=== PATIENT | female | born 1980 | race African-American/Black ===

== ENCOUNTER 2018-07-09 11:59 | Emergency (ER) | payer OTHER ==
[2018-07-09 12:47] VITALS: TEMP 98; BMI 21.2
--- NOTE | 2018-07-09 13:37 | PDOC ---
History of Present Illness - General Chief Complaint: Labor Assessment Stated Complaint: RT. SIDE ABD. PAIN History Source: Patient Exam Limitations: No Limitations - History of Present Illness Initial Comments: 07/09/18 13:43 38 yo F with no medical history (2X abortions and 1x miscarriages) ( vaginal delivery, no complications) presents to the emergency department from her OBGYN office for nausea, vomiting, abdominal pain, and vaginal spotting. Per the patient, she began having vaginal spotting yesterday after urination. Described as droplets and bright red without vaginal discharge. In addition, she has had generalized abdominal pain with worse point in midline lower abdomen for 4 days with associative N/V NBNB 4x+ per day. She describes the pain as cramping, sudden onset, constant, 10/10, with radiation to the LLQ and RLQ without lower back involvement. No home medications used for pain relief. Denies the following: fever, chills, sob, chest pain, visual changes, headaches , leg pain/swelling, diarrhea, and hematochezia. Allergies: NKDA Surgery: None Past History - Past Medical History Allergies/Adverse Reactions: Allergies Allergy/AdvReac Type Severity Reaction Status Date / Time No Known Allergies Allergy Verified 09/25/14 11:55 Home Medications: Ambulatory Orders Cephalexin Monohydrate [Keflex -] 500 mg PO Q8H 10 Days #30 capsule 07/09/18 Metoclopramide HCl [Reglan -] 10 mg PO BID PRN #8 tablet 07/09/18 Asthma: No Cancer: No Cardiac Disorders: No Diabetes: No HTN: No Seizures: No Thyroid Disease: No - Suicide/Smoking/Psychosocial Hx Smoking Status: No Smoking History: Unknown if ever smoked Have you smoked in the past 12 months: No Number of Cigarettes Smoked Daily: 0 Information on smoking cessation initiated: No Hx Alcohol Use: No Drug/Substance Use Hx: No Substance Use Type: None Hx Substance Use Treatment: No Review of Systems - Review of Systems Able to Perform ROS?: Yes Is the patient limited Indian proficient: No Constitutional: No: Chills, Diaphoresis, Fever, Weakness HEENTM: No: Eye Pain, Recent change in vision, Ear Pain, Nose Pain, Throat Pain , Mouth Pain Respiratory: No: Cough, Shortness of Breath, Hemoptysis Cardiac (ROS): No: Chest Pain, Lightheadedness, Palpitations, Syncope ABD/GI: Yes: Nausea, Poor Fluid Intake, Vomiting, Abdominal cramping. No: Constipated, Diarrhea, Poor Appetite, Rectal Bleeding, Tarry Stools : No: Burning, Dysuria, Hematuria, Incontinence Musculoskeletal: Yes: Back Pain. No: Joint Pain, Neck Pain Integumentary: No: Bruising, Erythema, Rash Neurological: No: Headache, Numbness, Tingling, Tremors Psychiatric: No: Change in Appetite Endocrine: No: Unexplained Weight Gain *Physical Exam - Vital Signs Last Vital Signs Temp Pulse Resp BP Pulse Ox 98 F 89 20 110/68 100 07/09/18 12:45 07/09/18 12:45 07/09/18 12:45 07/09/18 12:45 07/09/18 12:45 - Physical Exam General Appearance: Yes: Nourished, Appropriately Dressed. No: Apparent Distress HEENT: positive: EOMI, URSULA, Normal Voice, Symmetrical, Pharynx Normal, Other ( dry mucous membranes). negative: Pale Conjunctivae, Scleral Icterus (R), Scleral Icterus (L), Muffled/Hoarse voice, Pharyngeal Erythema, Tonsillar Exudate, Tonsillar Erythema Neck: positive: Trachea midline, Supple. negative: Tender, Lymphadenopathy (R) , Lymphadenopathy (L) Respiratory/Chest: positive: Lungs Clear, Normal Breath Sounds. negative: Chest Tender, Respiratory Distress, Accessory Muscle Use, Rales, Rhonchi, Stridor, Wheezing Cardiovascular: positive: Regular Rhythm, Regular Rate, S1, S2. negative: Systolic Murmur Female Pelvic Exam: positive: normal external exam, cervical os closed, normal adnexa, other (scant blood in the vaginal vault]). negative: CMT, adnexal tenderness Gastrointestinal/Abdominal: positive: Normal Bowel Sounds, Tender (lower abdominal midline), Flat, Soft. negative: Distended, Guarding, Rebound, Tenderness Lymphatic: negative: Adenopathy Musculoskeletal: positive: Normal Inspection. negative: CVA Tenderness Extremity: positive: Normal Capillary Refill, Normal Inspection, Normal Range of Motion. 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 negative: Facial Droop, Numbness, Sensory Deficit ED Treatment Course - LABORATORY CBC & Chemistry Diagram: 07/09/18 13:51 07/09/18 13:51 Medical Decision Making - Medical Decision Making 38 yo F with no medical history (vaginal delivery, no complications) presents to the emergency department from her OBGYN office for nausea, vomiting , abdominal pain, and vaginal spotting. Initial vitals: Initial Vital Signs Temp Pulse Resp BP Pulse Ox 98 F 89 20 110/68 100 07/09/18 12:45 07/09/18 12:45 07/09/18 12:45 07/09/18 12:45 07/09/18 12:45 Work up: Single IUP confirmed POCUS with FHR 122 with estimated GA 6 weeks 2 days. No ectopic seen. No free fluid. ddx: rule out ectopic vs threatened vs inevitable vs incomplete vs infectious etiology (GC) Laboratory Tests 07/09/18 07/09/18 07/09/18 13:51 13:51 13:51 WBC 6.4 RBC 4.58 Hgb 12.6 Hct 36.9 MCV 80.6 MCH 27.5 MCHC 34.1 RDW 15.4 D Plt Count 262 D MPV 7.6 Absolute Neuts (auto) 4.5 Neutrophils % 70.1 Lymphocytes % 18.1 D Monocytes % 11.0 H Eosinophils % 0.0 Basophils % 0.8 Nucleated RBC % 0 Sodium 137 Potassium 3.8 Chloride 103 Carbon Dioxide 22 Anion Gap 12 BUN 10 Creatinine 0.8 Creat Clearance w eGFR 81.16 Random Glucose 76 Calcium 9.6 Phosphorus 3.2 Magnesium 2.2 Total Bilirubin 0.5 AST 15 ALT 14 Alkaline Phosphatase 59 Total Protein 8.4 H Albumin 4.2 Beta HCG, Quant 29971.9 Urine Color Urine Appearance Urine pH Ur Specific [place] Urine Protein Urine Glucose (UA) Urine Ketones Urine Blood Urine Nitrite Urine Bilirubin Urine Urobilinogen Ur Leukocyte Esterase Urine WBC (Auto) Urine RBC (Auto) Urine Casts (Auto) U Epithel Cells (Auto) Urine Bacteria (Auto) Blood Type O POSITIVE Antibody Screen Negative 07/09/18 15:01 WBC RBC Hgb Hct MCV MCH MCHC RDW Plt Count MPV Absolute Neuts (auto) Neutrophils % Lymphocytes % Monocytes % Eosinophils % Basophils % Nucleated RBC % Sodium Potassium Chloride Carbon Dioxide Anion Gap BUN Creatinine Creat Clearance w eGFR Random Glucose Calcium Phosphorus Magnesium Total Bilirubin AST ALT Alkaline Phosphatase Total Protein Albumin Beta HCG, Quant Urine Color Yellow Urine Appearance Clear Urine pH 6.0 Ur Specific [place] 1.019 Urine Protein Negative Urine Glucose (UA) Negative Urine Ketones 4+ H Urine Blood 1+ H Urine Nitrite Positive H Urine Bilirubin Negative Urine Urobilinogen 1.0 Ur Leukocyte Esterase Trace Urine WBC (Auto) 3 Urine RBC (Auto) 2 Urine Casts (Auto) 3 U Epithel Cells (Auto) 3.9 Urine Bacteria (Auto) 4741.6 Blood Type Antibody Screen labs show UTI in UA. no leukocytosis and no antibodies. patients bhcg appropriate for gestational age. patient has significant improvement in symptoms after IVF, reglan, and tylenol. patient was given strict return precautions and prescribed abx for outpatient use. told to follow up with OBGYN in 1 week for follow up care. Dispo: Discharge *DC/Admit/Observation/Transfer Diagnosis at time of Disposition: Threatened UTI (urinary tract infection) Qualifiers: Urinary tract infection type: site unspecified Hematuria presence: without hematuria Qualified Code(s): N39.0 - Urinary tract infection, site not specified - Discharge Dispostion Disposition: HOME Decision to Admit order: No - Prescriptions Prescriptions: Cephalexin Monohydrate [Keflex -] 500 mg PO Q8H 10 Days #30 capsule Metoclopramide HCl [Reglan -] 10 mg PO BID PRN #8 tablet PRN Reason: Nausea And/Or Vomiting - Referrals Referrals: Linda Solorzano MD [Staff Physician] - [facility] [place] [facility] [Provider Group] - Patient Instructions Printed Discharge Instructions: DI for Threatened , DI for Urinary Tract Infection (UTI) Additional Instructions: you were seen in the emergency department for your abdominal pain and nausea and vomiting. your urine shows that you have an urinary tract infection. please take the antibiotics as prescribed. in addition, your ultrasound shows your with a heart rate intact. please heed the following precautions : there may be more bleeding. in addition, please return to the emergency department if you have worsening bleeding with associative weakness, lightheadedness, and dizziness. please follow up with your OBGYN physician or the one referred to you in 1 week after discharge. for the UTI, you need to take the antibiotics as prescribed. if you have fever, chills, worsening nausea and vomiting, and flank pain, please return to the emergency department immediately. thank you. - Post Discharge Activity Forms/Work/School Notes: Back to Work
[2018-07-09] MEDS ORDERED: PYRIDOXINE HCL (B-6) 50 MG TABLET (FP) PO ONE (13:41)
[2018-07-09] MEDS ORDERED: ACETAMINOPHEN 1000 MG/100 ML VIAL (NON FORMULARY) IVPB ONE (13:41)
[2018-07-09] MEDS ORDERED: SODIUM CHLORIDE 1,000 ML IV STA (13:41)
[2018-07-09] MEDS ORDERED: ACETAMINOPHEN INJECTION 100 ML IVPB ONE (13:47)
[2018-07-09] MEDS ORDERED: THIAMINE HCL 100 MG TABLET (FP) ONE (13:47)
[2018-07-09] MEDS ORDERED: METOCLOPRAMIDE HCL INJECTION 10 MG/2 ML VIAL ONE (13:55)
[2018-07-09] MEDS ORDERED: METOCLOPRAMIDE HCL INJECTION 10 MG/2 ML VIAL IVPUSH ONE (13:59)
[2018-07-09 14:10] LABS: BASO % 0.8 % (0-2.0); HEMATOCRIT 36.9 % (32.4-45.2); HEMOGLOBIN 12.6 GM/dL (10.7-15.3); LYMPH % 18.1 % (8-40); MCH 27.5 pg (25.7-33.7); MCHC 34.1 g/dl (32.0-36.0); MEAN CELL VOLUME 80.6 fl (80-96); MEAN PLT VOLUME 7.6 fl (7.5-11.1); NEUT % 70.1 % (42.8-82.8); PLATELET COUNT 262 K/MM3 (134-434); RBC 4.58 M/mm3 (3.60-5.2); RDW 15.4 % (11.6-15.6); WHITE BLOOD COUNT 6.4 K/mm3 (4.0-10.0)
--- NOTE | 2018-07-09 14:29 | PDOC ---
Attending Attestation - Resident Resident Name: CarterKrishan - ED Attending Attestation I have performed the following: I have examined & evaluated the patient, The case was reviewed & discussed with the resident, I agree w/resident's findings & plan - HPI HPI: 07/09/18 14:23 38-year-old female with no medical history presenting with abdominal pain and vaginal spotting times one day. Associated with nausea and vomiting times x5 days, inability to tolerate oral intake. - Physicial Exam PE: 07/09/18 14:25 Agree with the resident's HPI and PE as documented in the electronic medical record. NAD, well appearing, PERRL, EOMI, MMM, nl conjunctiva, anicteric; neck supple. lungs clear, RRR, abdomen soft nontender. no CVAT/flank tenderness. BELL x4, no focal neuro deficits. No peripheral edema. normal color for ethnicity, WWP. pelvic exam by resident, see note - Medical Decision Making 07/09/18 14:25 hpi as documented VS reviewed wnl. DDx female VB: ectopic , miscarriage, demise, subchorionic hematoma, retained POC, normal first trimester bleeding, UTI in in . Fibroid uterus, vaginitis, infection, electrolyte/metabolic derangements, anemia. Rh positive, no rhogam indicated VS wnl, abdomen benign, no VB here, controlled pelvic exam by resident, unremarkable. Beta hcg >45,000 Bedside pelvic US performed for female with VB and /or abdominal pain, evaluation. views obtained: pelvis transverse and sagittal , findings include live IUP visualized dated at, FHR 123 bpm. CRL dating at 6w 2d. no pelvic FF. ?small subchorionic hematoma, pelvic vasculature in uterus posteriorly noted. Impression: live IUP. ED course: IVF and antiemetic, reglan, tylenol. labs and lytes normal. UA positive with nitrites and bacteria, in setting of , will treat with 10 day course of Keflex pyelo/infection precautions given. Dispo: OB followup, bleeding precautions for threatened . pelvic rest advised. tylenol PRN pain control, reglan for n/v of , hydration and intake important, vitamins. strict return precautions. In evaluating this patient's complaint, multiple diagnoses were considered, including those listed above. Based on history, physical, clinical context, and any tests done today it is my judgment that the diagnosis/diagnoses considered do not apply to this patient and that the remaining diagnoses about either do not apply to this patient, or do not require additional emergent evaluation and treatment 07/09/18 15:56 Procedures - Bedside Ultrasound Other: pelvic/ Remarks: 07/09/18 14:28 Bedside pelvic US performed for female with VB and /or abdominal pain, evaluation. views obtained: pelvis transverse and sagittal , findings include live IUP visualized dated at, FHR 123 bpm. CRL dating at 6w 2d. no pelvic FF. ?small subchorionic hematoma, pelvic vasculature in uterus posteriorly noted. Impression: live IUP.
[2018-07-09 14:39] LABS: ALBUMIN 4.2 g/dl (3.4-5.0); ALK PHOS 59 U/L (45-117); ANION GAP 12 MMOL/L (8-16); BILIRUBIN,TOTAL 0.5 mg/dL (0.2-1); BLOOD UREA NITROGEN 10 mg/dL (7-18); CALCIUM 9.6 mg/dL (8.5-10.1); CHLORIDE 103 mmol/L (98-107); CO2 22 mmol/L (21-32); CREATININE 0.8 mg/dL (0.55-1.3); GLUCOSE,RANDOM 76 mg/dL (74-106); MAGNESIUM 2.2 mg/dL (1.8-2.4); PHOSPHOROUS 3.2 mg/dL (2.5-4.9); POTASSIUM 3.8 mmol/L (3.5-5.1); SGOT/AST 15 U/L (15-37); SGPT/ALT 14 U/L (13-61); SODIUM 137 mmol/L (136-145); TOT PROT 8.4 g/dl (6.4-8.2)
[2018-07-09 15:17] LABS: EPI CELLS 3.9 /HPF (0-5/HPF); URINE APPEARANCE CLEAR; URINE BACTERIA 4741.6 /hpf (NEGATIVE); URINE BILIRUBIN NEGATIVE (NEGATIVE); URINE CASTS 3 /lpf (0-8); URINE COLOR YELLOW; URINE GLUCOSE (UA) NEGATIVE (NEGATIVE); URINE KETONE 4+ (NEGATIVE); URINE LEUK ESTERASE TRACE (NEGATIVE); URINE NITRITE POSITIVE (NEGATIVE); URINE PROTEIN NEGATIVE (NEGATIVE); URINE RBC 2 /hpf (0-4); URINE WBC 3 /hpf (0-5)
[2018-07-09] MEDS ORDERED: CEPHALEXIN MONOHYDRATE 500 MG CAPSULE (UD) PO ONE (15:36)
[2018-07-09] MEDS ORDERED: CEPHALEXIN MONOHYDRATE 500 MG CAPSULE (UD) ONE (15:51)
[2018-07-09 16:48] VITALS: BP 118/90; PULSE 96
== END 2018-07-09 16:48 | disposition home or self-care (01) ==
LOC: JER 11:59
PROC: BY49ZZZ Ultrasonography of First Trimester, Single Fetus (ICD-10-PCS; principal; 2018-07-09)
DX: O26.891 Other specified pregnancy related conditions, first trimester (principal); O20.0 Threatened abortion; O23.31 Infections of other parts of urinary tract in pregnancy, first trimester; B96.89 Other specified bacterial agents as the cause of diseases classified elsewhere; Z3A.01 Less than 8 weeks gestation of pregnancy
CPT/HCPCS: 36415; 80053; 81003; 83735; 84100; 84702; 85025; 86850; 86900; 86901; 87086; 87186; 87491; 87591; 87661; 99284-25; J0131; J7030

== ENCOUNTER 2019-02-24 21:30 | Inpatient (IN) | payer OTHER ==
--- NOTE | 2019-02-24 23:04 | HP ---
Past Medical History - Admission History of Present Illness: 39 yo @ 39 1/7 wks by first trimester ultrasound, EDC 03/02/2019 complicated by: 1. Sickle cell carrier - FOB negative 2010 2. 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 AMA - Reassuring testing, [id number] Most recent ultrasound 02/06/2019 6lb 12oz 3074 grams (61%ile) 4. Mild anemia - asymptomatic Not taking ferrous sulfate Patient reports chief complaint of contractions that started at 2000 She reports movement, denies leakage of fluid or vaginal bleeding. History Source: Patient Limitations to Obtaining History: No Limitations - Past Medical History Cardiovascular: No: HTN Pulmonary: No: Asthma ...: 6 ...Para: 2 ...Term: 2 ...Spon : 1 ...Induced : 2 Heme/Onc: Yes: Sickle Cell Trait. No: Anemia - Past Surgical History Hx Myomectomy: No Hx Transabdominal Cerclage: No Additional Surgical History: Chest tube, s/p spontaneous pneumothorax - Smoking History Smoking history: Unknown if ever smoked Have you smoked in the past 12 months: No Aproximately how many cigarettes per day: 0 - Alcohol/Substance Use Hx Alcohol Use: No - Social History Usual Living Arrangement: Yes: With Spouse History of Recent Travel: No Home Medications - Allergies Allergies/Adverse Reactions: Allergies Allergy/AdvReac Type Severity Reaction Status Date / Time No Known Allergies Allergy Verified 09/25/14 11:55 Family Medical History Family History: Denies Review of Systems - Review of Systems Constitutional: reports: No Symptoms Cardiovascular: reports: No Symptoms Respiratory: reports: No Symptoms Gastrointestinal: reports: No Symptoms Genitourinary: reports: No Symptoms Musculoskeletal: reports: No Symptoms Neurological: reports: No Symptoms Endocrine: reports: No Symptoms Psychiatric: reports: No Symptoms Physical Exam - Maternity Constitutional: Yes: Well Nourished, No Distress, Calm Cardiovascular: Yes: Regular Rate and Rhythm Lungs: Clear to auscultation - Abdominal Exam/OB Number of Fetuses: Single Presentation: Vertex Contractions: Yes Regularity: Regular Category: I Accelerations: Non-Uniform Decelerations: None - Vaginal Exam/OB Vaginal Bleediing: No Dilatation (cm): 3 Effacement (%): 80 Amniotic Membrane Status: Intact Station: -3 - Physical Exam Edema: No Psychiatric: Yes: Alert, Oriented - Labs Lab Results: PNL: O positive, antibody negative, RPR NR, HIV neg, HCV neg; HBs Ag neg; Hg Nadia SC trait (as above); Rubella Immune; Varicella Immune; GCT 50; GBS negative Hemorrhage Risk Assessment - Risk Factors Medium Risk Factors: Yes: None High Risk Factors: Yes: None Risk Score: 1 Risk Level: Medium Risk Assessment/Plan 39 yo @ 39 1/7 wks active labor 1. Admit to L&D 2. Consents reviewed and signed 3. Routine labs collected and sent 4. GBS negative 5. Category I FHT 6. Will offer pain medication upon patient request 7. Will proceed with expectant management
[2019-02-25 00:02] LABS: BASO % 0.2 % (0-2.0); EOS % 0.5 % (0-4.5); HEMATOCRIT 31.1 % (32.4-45.2); HEMOGLOBIN 10.2 GM/dL (10.7-15.3); LYMPH % 21.2 % (8-40); MCHC 32.8 g/dl (32.0-36.0); MEAN CELL VOLUME 82.4 fl (80-96); MEAN PLT VOLUME 7.7 fl (7.5-11.1); MONO % 13.3 % (3.8-10.2); NEUT % 64.8 % (42.8-82.8); PLATELET COUNT 238 K/MM3 (134-434); RBC 3.77 M/mm3 (3.60-5.2); RDW 16.8 % (11.6-15.6); WHITE BLOOD COUNT 7.5 K/mm3 (4.0-10.0)
[2019-02-25 00:28] LABS: BLOOD UREA NITROGEN 3.2 mg/dL (7-18); CALCIUM 8.7 mg/dL (8.5-10.1); CREATININE 0.6 mg/dL (0.55-1.3); POTASSIUM 3.9 mmol/L (3.5-5.1)
[2019-02-25] MEDS ORDERED: NALOXONE HCL 0.4 MG/ML VIAL IVPUSH PRN (00:50)
[2019-02-25] MEDS ORDERED: FENTANYL/BUPIVACAINE/NS/PF - PCEA - 50 ML DISP.SYRIN EP ONE (00:51)
[2019-02-25] MEDS ORDERED: LIDO 2%/EPI 1:200000 PRESRVFRE (20 ML SDVIAL) ONE (00:56)
[2019-02-25] MEDS ORDERED: FENTANYL/BUPIVACAINE/NS/PF - PCEA - 50 ML DISP.SYRIN EP SCH (01:00)
--- NOTE | 2019-02-25 01:35 | PN ---
Ante-Partal Exam - Subjective Subjective: Patient comfortable s/p epidural Bleeding: No Headache: No Visual changes: No Right upper quadrant pain: No - Contractions Contractions: Yes Regularity: Regular Monitor Mode: External - Exam during Labor Heart Rate: 130 Variability: Moderate Category: I Monitor Accelerations: Present Monitor Decelerations: None Exam: Vaginal Dilatation (cm): 6 Effacement (%): 80 Amniotic Membrane Status: Ruptured (clear) Amniotic Fluid: Clear Station: -3 - Intrapartum Hemorrhage Risk Medium Risk Factors: None High Risk Factors: None Risk Score: 0 Risk Level: Low Risk - Assessment/Plan Assessment/Plan: 39 yo active labor 1. AROM performed, clear fluid 2. GBS neg 3. Pain well controlled with epidural 4. will proceed with expectant management
[2019-02-25] MEDS ORDERED: OXYTOCIN 20 UNITS in 0.9% NS 20 UNIT/1,000 ML INFUS.BAG IV ONE ×2 (03:00→05:23)
[2019-02-25] MEDS ORDERED: METHYLERGONOVINE MALEATE 0.2 MG/1 ML AMP IM PRN (03:22)
[2019-02-25] MEDS ORDERED: WITCH HAZEL 50% (TUCKS) 40 PAD/JAR PAD TP PRN (03:22)
[2019-02-25] MEDS ORDERED: BENZOCAINE 20% 57 GM BOTTLE TP PRN (03:22)
[2019-02-25] MEDS ORDERED: BENZOCAINE 28 GM HEMORRHOIDAL OINTMENT TP PRN (03:22)
[2019-02-25] MEDS ORDERED: BISACODYL 10 MG SUPP.RECT RC PRN (03:22)
--- NOTE | 2019-02-25 03:23 | PN ---
Delivery - Delivery Vaginal Delivery: No Problems Type of Anesthesia: Epidural Episiotomy/Laceration: None EBL (cc): 100 Delivery, Single - Stages of Labor Date 1st Stage Initiatied: 02/24/19 Time 1st Stage Initiated: 20:00 Date 2nd Stage Initiated: 02/25/19 Time 2nd Stage Initiated: 02:55 Date of Delivery: 02/25/19 Time of Delivery: 03:12 Date Placenta Delivered: 02/25/19 Time Placenta Delivered: 03:15 Placenta: Yes: Spontaneous - Condition of Infant Gender: Male Position: Left, OA Total Hours ROM (Hrs/Mins): 1 hour 45 minutes - 1 Minute Total Score: 9 5 Minutes Total Score: 9 Remarks - Remarks Remarks: Patient progressed to fully dilated and at 0312 via delivered a viable male in ESAU position, APGARs 9,9. Weight and length unknown at this time. Head delivered spontaneously followed by shoulders and body without difficulty. Infant with spontaneous cry and placed on mother's abdomen. Nose and mouth was bulb suctioned. Cord was clamped and cut. Perineum and vagina examined, No lacerations noted Placenta was delivered spontaneously and intact. 20 units of pitocin in 1 L IVF was given. All counts correct x 2. Mother and infant stable in LDR. EBL 100cc.
[2019-02-25] MEDS ORDERED: OXYTOCIN 20 UNITS in 0.9% NS 20 UNIT/1,000 ML INFUS.BAG IV SCH (03:30)
[2019-02-25] MEDS ORDERED: ELECTROLYTE-148 SOLN 1,000 ML IV SCH (04:45)
[2019-02-25 04:52] LABS: INR 0.84 (0.83-1.09); PROTHROMBIN TIME (PATIENT) 9.9 SEC (9.7-13.0)
[2019-02-25 04:55] LABS: ACTIVATED PTT 25.4 SECONDS (25.2-36.5)
[2019-02-25 05:09] VITALS: BMI 24.3
[2019-02-25] MEDS ORDERED: ACETAMINOPHEN 325 MG TABLET (FP) ONE (07:27)
[2019-02-25] MEDS ORDERED: IBUPROFEN 600 MG TABLET (FP) PO ONE (07:27)
[2019-02-25] MEDS: IBUPROFEN 600 MG TABLET (FP) PO PRN ×2 (07:34→14:51)
[2019-02-25] MEDS: ACETAMINOPHEN 325 MG TABLET (FP) PO PRN ×2 (07:37→14:51)
[2019-02-25] MEDS: PRENATAL VITAMINS W/ FOLIC ACID TABLET (FP) PO SCH (09:30)
[2019-02-26] MEDS: ACETAMINOPHEN 325 MG TABLET (FP) PO PRN ×4 (02:14→22:33)
[2019-02-26] MEDS: IBUPROFEN 600 MG TABLET (FP) PO PRN ×4 (02:14→22:34)
[2019-02-26 08:22] LABS: BASO % 0.4 % (0-2.0); EOS % 0.7 % (0-4.5); HEMATOCRIT 28.3 % (32.4-45.2); HEMOGLOBIN 9.4 GM/dL (10.7-15.3); MCH 27.1 pg (25.7-33.7); MCHC 33.2 g/dl (32.0-36.0); MEAN CELL VOLUME 81.8 fl (80-96); MEAN PLT VOLUME 7.7 fl (7.5-11.1); MONO % 10.9 % (3.8-10.2); PLATELET COUNT 222 K/MM3 (134-434); RBC 3.45 M/mm3 (3.60-5.2); RDW 16.8 % (11.6-15.6); WHITE BLOOD COUNT 8.5 K/mm3 (4.0-10.0)
--- NOTE | 2019-02-26 08:26 | PN ---
Post Progress Note - Subjective Subjective: Patient without acute complaints. Reports tolerating oral intake without nausea or vomiting. Ambulating without dizziness. Denies fevers or chills. Pain well controlled with oral pain medication. without difficulty. Passing flatus. Post Day: 1 Type of Delivery: Vital Signs: Vital Signs Temperature 97.9 F 02/26/19 05:56 Pulse Rate 69 02/26/19 05:56 Respiratory Rate 20 02/26/19 05:56 Blood Pressure 106/68 02/26/19 05:56 O2 Sat by Pulse Oximetry (%) 100 02/25/19 03:00 Breast Exam: Yes: Soft Uterus: Yes: Fundus Firm, Fundus @ umbilicus Abdomen/GI: Yes: Abdomen soft Lochia: Yes: Rubra Lochia, amount: Small Extremities: Yes: Calves non-tender Perineum: Yes: Intact Activity: Ambulating - Labs Labs: CBC WBC 7.5 K/mm3 (4.0-10.0) 02/24/19 11:45 RBC 3.77 M/mm3 (3.60-5.2) 02/24/19 11:45 Hgb 10.2 GM/dL (10.7-15.3) L 02/24/19 11:45 Hct 31.1 % (32.4-45.2) L D 02/24/19 11:45 MCV 82.4 fl (80-96) 02/24/19 11:45 MCH 27.0 pg (25.7-33.7) 02/24/19 11:45 MCHC 32.8 g/dl (32.0-36.0) 02/24/19 11:45 RDW 16.8 % (11.6-15.6) H 02/24/19 11:45 Plt Count 238 K/MM3 (134-434) 02/24/19 11:45 MPV 7.7 fl (7.5-11.1) 02/24/19 11:45 Absolute Neuts (auto) 4.8 K/mm3 (1.5-8.0) 02/24/19 11:45 Neutrophils % 64.8 % (42.8-82.8) 02/24/19 11:45 Lymphocytes % 21.2 % (8-40) 02/24/19 11:45 Monocytes % 13.3 % (3.8-10.2) H 02/24/19 11:45 Eosinophils % 0.5 % (0-4.5) D 02/24/19 11:45 Basophils % 0.2 % (0-2.0) 02/24/19 11:45 Nucleated RBC % 0 % (0-0) 02/24/19 11:45 Assessment/Plan 39yo s/p doing well, Breast feeding VSS, Afebrile, appropriate h/h drop, Stable Rh pos Baby boy circumcised Plan d/c on 02/27/19
[2019-02-26] MEDS: PRENATAL VITAMINS W/ FOLIC ACID TABLET (FP) PO SCH (10:53)
[2019-02-26] MEDS ORDERED: SENNOSIDES/DOCUSATE COMBO (SENNA PLUS) TABLET (UD) PO PRN (22:00)
[2019-02-26] MEDS: FENTANYL/BUPIVACAINE/NS/PF - PCEA - 50 ML DISP.SYRIN EP SCH (22:02)
--- NOTE | 2019-02-27 08:17 | DS ---
Physical Exam-COMB TENDER Vital Signs: Vital Signs Temperature 98.1 F 02/26/19 22:00 Pulse Rate 80 02/26/19 22:00 Respiratory Rate 18 02/26/19 22:00 Blood Pressure 113/67 02/26/19 22:00 O2 Sat by Pulse Oximetry (%) 100 02/25/19 03:00 Constitutional: Yes: Well Nourished, No Distress, Calm Eyes: Yes: WNL, Conjunctiva Clear, EOM Intact HENT: Yes: WNL, Atraumatic, Normocephalic Neck: Yes: WNL, Supple, Trachea Midline Cardiovascular: Yes: WNL, Regular Rate and Rhythm Respiratory: Yes: WNL, Regular, CTA Bilaterally Gastrointestinal: Yes: WNL, Normal Bowel Sounds, Soft ...Rectal Exam: Yes: Deferred Renal/: Yes: WNL External Genitalia: Yes: Normal Internal Exam Deferred: Yes ....Post : Yes: Uterus firm, Uterus non-tender, Slight lochia rubra Breast(s): Yes: WNL Musculoskeletal: Yes: WNL Extremities: Yes: WNL Edema: No Integumentary: Yes: WNL Neurological: Yes: WNL, Alert, Oriented ...Motor Strength: WNL Psychiatric: Yes: WNL, Alert, Oriented Labs: CBC, BMP 02/26/19 07:33 02/24/19 11:45 Delivery - Delivery Vaginal Delivery: No Problems, Spontaneous Type of Anesthesia: Epidural Episiotomy/Laceration: None EBL (cc): 100 Delivery, Single - Stages of Labor Date 1st Stage Initiatied: 02/24/19 Time 1st Stage Initiated: 20:00 Date 2nd Stage Initiated: 02/25/19 Time 2nd Stage Initiated: 02:55 Date of Delivery: 02/25/19 Time of Delivery: 03:12 Time Placenta Delivered: 03:15 Placenta: Yes: Spontaneous - Condition of Dental Internship/Tie Tamper Present: No Gender: Male Weight: 3.203 kg Position: Left, OA Total Hours ROM (Hrs/Mins): 1 hour 45 minutes - 1 Minute Total Score: 9 5 Minutes Total Score: 9 - Feeding Plan Initial Plan: Elected not to breastfeed exclusively throughout hospitalization Discharge Summary Problems reviewed: Yes Reason For Visit: LABOR Spont labor at term Procedures: Principal: Hospital Course: Normal recovery Condition: Good - Instructions Diet, Activity, Other Instructions: Physical activity Resume your normal everyday activity as tolerated no heavy lifting or exercise until seen by your surgeon. You may walk unlimited zenaida of and climb stairs. You may resume driving the car when you feel safe and comfortable behind the wheel. No sexual activity as instructed. Wound care If you have a bandage, leave it on, and keep dry for 48-72 hours. After that time discard the outer bandage. If they are tapes on the skin under the out of bandage leave them in place. They will peel off in the next 7 to 10 days. Do Not Peel them off. You may shower the day after surgery. If there are tapes present on the skin, you may shower over them. Diet There are no dietary restrictions. Eat healthy, high-fiber foods. Drink 6 to 8 glasses of liquid each day. This will assist in keeping your bowels are regular. Pain management You may take Tylenol or acetaminophen or Ibuprofen (for example, Motrin, Advil etc.) from my pain prescription medication is ordered should be taken as prescribed for moderate to severe pain. Call MD for any of the following: Severe pain not relieved by medication Fever of 101 or higher Excessive bleeding or drainage on dressing Inability to urinate Referrals: Magdi Lowery MD [Staff Physician] - Disposition: HOME - Home Medications Comprehensive Discharge Medication List: Ambulatory Orders Pnv 29-1 Tablet 1 tab PO DAILY 02/25/19 Prescription Drug Monitoring Program (I-STOP) results: I-STOP not reviewed
[2019-02-27] MEDS: PRENATAL VITAMINS W/ FOLIC ACID TABLET (FP) PO SCH (09:08)
[2019-02-27] MEDS: ACETAMINOPHEN 325 MG TABLET (FP) PO PRN (09:09)
[2019-02-27] MEDS: IBUPROFEN 600 MG TABLET (FP) PO PRN (09:10)
[2019-02-27 12:24] VITALS: BP 140/73; PULSE 67; TEMP 98.7
== END 2019-02-27 14:45 | disposition home or self-care (01) | DRG 807 ==
LOC: JDEL 21:30 → JLDR 22:50 → J3W 02-25 08:05
PROVIDERS: ADMIT Obstetrics & Gynecology; ATTEND Obstetrics & Gynecology
PROC: 10E0XZZ Delivery of Products of Conception, External Approach (ICD-10-PCS; principal; 2019-02-25)
DX: O99.02 Anemia complicating childbirth (principal); Z37.0 Single live birth; Z3A.39 39 weeks gestation of pregnancy
CPT/HCPCS: 36415; 59409; 80048; 85025; 85610; 85730; 86593; 86850; 86900; 86901; 87389

== ENCOUNTER 2023-05-26 04:41 | Day surgery (SDC) | payer OTHER ==
[2023-05-22 10:41] VITALS: BMI 27.3
[2023-05-26] MEDS ORDERED: LIDOCAINE 1%/EPI 1:100000 (20 ML MULTI DOSE VIAL) ONE (09:53)
[2023-05-26] MEDS ORDERED: BUPIVACAINE HCL/PF 0.5% (5MG/ML) 10 ML VIAL ONE ×2 (10:36→11:22)
[2023-05-26] MEDS ORDERED: LIDOCAINE HCL/PF 2% SDV 5ML VIAL ONE (10:55)
[2023-05-26] MEDS ORDERED: PROPOFOL 20 ML ONE (10:56)
[2023-05-26] MEDS ORDERED: MIDAZOLAM HCL 2 MG/2 ML SINGLE DOSE VIAL ONE (10:56)
[2023-05-26] MEDS ORDERED: ceFAZolin SODIUM 1 GM VIAL ONE (11:09)
[2023-05-26] MEDS ORDERED: DEXAMETHASONE SOD PHOSPHATE 4 MG/1 ML VIAL ONE (11:09)
[2023-05-26] MEDS: ceFAZolin SODIUM 1 GM VIAL IVPB ONE ×2 (11:10→11:23)
[2023-05-26] MEDS: BUPIVACAINE HCL/PF 0.5% (5 MG/ML) 30 ML VIAL IJ ONE ×3 (11:21)
[2023-05-26] MEDS ORDERED: KETOROLAC TROMETHAMINE 30 MG/1 ML VIAL ONE (11:29)
[2023-05-26] MEDS ORDERED: ONDANSETRON 4 MG/2 ML VIAL ONE (11:29)
[2023-05-26] MEDS ORDERED: PROMETHAZINE HCL 25 MG/1 ML VIAL IVPB PRN (12:21)
[2023-05-26] MEDS ORDERED: ONDANSETRON 4 MG/2 ML VIAL IVPUSH PRN (12:21)
[2023-05-26] MEDS ORDERED: LACTATED RINGERS SOLUTION 1,000 ML IV SCH (12:30)
[2023-05-26] MEDS: ACETAMINOPHEN 1000 MG/100 ML BAG IVPB ONE (12:35)
[2023-05-26] MEDS ORDERED: oxyCODONE HCL 10 MG SUSTAINED ACTING TABLET ONE (13:35)
[2023-05-26] MEDS: oxyCODONE HCL 5 MG TABLET PO PRN ×2 (13:41→14:17)
[2023-05-26 13:48] VITALS: RESP 20; TEMP 98.4
[2023-05-26] MEDS ORDERED: oxyCODONE HCL 5 MG TABLET ONE (14:11)
[2023-05-26 14:15] VITALS: BP 118/78; PULSE 62
== END 2023-05-26 14:45 | disposition home or self-care (01) ==
LOC: JASU-SURG 04:41
PROVIDERS: ATTEND Surgery
PROC: 0JB60ZZ Excision of Chest Subcutaneous Tissue and Fascia, Open Approach (ICD-10-PCS; principal; 2023-05-26 10:30)
DX: R22.2 Localized swelling, mass and lump, trunk (principal)
CPT/HCPCS: 81025; 88304-TC; 94760; J0131